=== PATIENT | female | born 1950 | race Two or more races ===

== ENCOUNTER 2022-06-06 22:24 | Emergency (ER) | payer OTHER ==
[~2022-06-06] VITALS: Ht 147.3 cm; Wt 63.0 kg
[2022-06-06] MEDS ORDERED: SODIUM CHLORIDE 0.9% 1,000 ML IV ONE (23:00)
[2022-06-06 23:14] LABS: Basophils # (auto) 0.1 10 ^3/uL (0-0.2); Eosinophils # (auto) 0.2 10 ^3/uL (0-0.8); Eosinophils % (auto) 1.8 % (0.0-7.0); Hematocrit 42.8 % (36.0-46.0); Lymphocytes % (auto) 46.8 % (10.0-50.0); Mean Corpuscular Hemoglobin 30.9 pg (28.0-32.0); Mean Corpuscular Hgb Conc. 32.7 g/dL (32.0-36.0); Mean Corpuscular Volume 94.5 fL (80.0-100.0); Monocytes # (auto) 0.7 10 ^3/uL (0-1.3); Monocytes % (auto) 8.3 % (0.0-12.0); Neutrophils # (auto) 3.6 10 ^3/uL (1.6-8.6); Neutrophils % (auto) 42.1 % (37.0-80.0); Red Blood Cells 4.53 10^6/uL (4.0-5.20); Red Cell Distribution Width 13.8 % (11.8-14.3); White Blood Cell 8.5 10^3/uL (4.4-10.8)
[2022-06-06 23:35] LABS: Alanine Aminotransferase 25 U/L (13-56); Albumin 4.2 g/dL (3.4-5.0); Anion Gap 9 (5-15); Aspartate Aminotransferase 20 U/L (15-37); BUN/Creatinine Ratio 28.2; Blood Alcohol < 3.0 mg/dL (0-5); Blood Urea Nitrogen 24 mg/dL (7-18); Carbon Dioxide 27 mmol/L (21-32); Chloride 106 mmol/L (98-107); GFR African American 85 mL/min; GFR Non-African American 70 mL/min; Glucose 84 mg/dL (74-106); Sodium 142 mmol/L (136-145)
[2022-06-06 23:37] LABS: Alkaline Phosphatase 80 U/L (45-117); Bilirubin, Total 0.2 mg/dL (0.2-1.0); Total Protein 8.1 g/dL (6.4-8.2)
[2022-06-07 04:50] VITALS: BP 113/52
== END 2022-06-07 04:59 | disposition home or self-care (01) ==
LOC: ER 22:24
DX: G45.9 Transient cerebral ischemic attack, unspecified (principal); E11.9 Type 2 diabetes mellitus without complications; I10 Essential (primary) hypertension
CPT/HCPCS: 36415; 70450; 71045; 80053; 80320; 84484; 85025; 93005